=== PATIENT | female | born 1975 | race Caucasian/White ===

== ENCOUNTER → 2016-09-21 | Outpatient (CLI) | payer MEDICAID ==
[~2016-09-21] MED LIST: CYAN100017 PO; CYCL1TAB29 PO; DAKI0.12 TOPICAL; DILA4TAB2 PO; FENT100D T-DERMAL; GABA800T PO; LITH300C2 PO; LORA1TAB12 PO; MULT1TAB84 PO; OMEP40CA2 PO; VIST25CA PO
[2016-09-21 14:30] LABS: AUTOMATED NEUTROPHIL # 8.2 TH/MM3 (1.8-7.7); BASOPHIL # 0.1 TH/MM3 (0-0.2); BASOPHIL % 1.1 % (0.0-2.0); EOSINOPHIL # 0.1 TH/MM3 (0-0.4); EOSINOPHIL % 1.3 % (0.0-4.0); HEMATOCRIT 40.1 % (35.0-46.0); HEMO FLAGS DIFF FINAL; LYMPH % 22.3 % (9.0-44.0); LYMPHOCYTE # 2.5 TH/MM3 (1.0-4.8); MEAN CELL VOLUME 90.9 FL (80.0-100.0); MEAN CORPUSCULAR HEMOGLOBIN 32.2 PG (27.0-34.0); MEAN CORPUSCULAR HGB CONC 35.5 % (32.0-36.0); MONO % 3.5 % (0.0-8.0); NEUT % 71.8 % (16.0-70.0); PLATELET COUNT 234 TH/MM3 (150-450); RED BLOOD COUNT 4.42 MIL/MM3 (4.00-5.30); RED CELL DISTRIBUTION WIDTH 13.5 % (11.6-17.2); WHITE BLOOD COUNT 11.4 TH/MM3 (4.0-11.0)
[2016-09-21 14:39] LABS: APTT (PATIENT) 29.6 SEC (24.3-30.1); PROTHROMBIN TIME - PATIENT 11.2 SEC (9.8-11.6)
[2016-09-21 14:57] LABS: ALKALINE PHOSPHATASE 98 U/L (45-117); ALT (GPT) 50 U/L (10-53); ANION GAP 11 MEQ/L (5-15); AST (GOT) 40 U/L (15-37); BICARBONATE 23.5 MEQ/L (21.0-32.0); BLOOD UREA NITROGEN 6 MG/DL (7-18); CHLORIDE 102 MEQ/L (98-107); GLOMERULAR FILTRATION RATE 77 ML/MIN (>89); GLUCOSE,FASTING 72 MG/DL (74-99); POTASSIUM 3.4 MEQ/L (3.5-5.1); SODIUM (NA) 136 MEQ/L (136-145); TOTAL BILIRUBIN ADULT 0.9 MG/DL (0.2-1.0)
[2016-09-21 15:18] LABS: BHCG SCREEN QUALITATIVE LESS THAN 1 MIU/ML (0-5)
== END ==
LOC: CPRE 13:58
PROVIDERS: ATTEND Obstetrics & Gynecology Gynecologic Oncology
DX: Z01.812 Encounter for preprocedural laboratory examination (principal); C51.9 Malignant neoplasm of vulva, unspecified
CPT/HCPCS: 36415; 80053; 84703; 85025; 85610; 85730

== ENCOUNTER → 2016-09-26 | Day surgery (SDC) | payer MEDICAID ==
[~2016-09-26] VITALS: Ht 162.6 cm; Wt 78.8 kg
[~2016-09-26] MED LIST changes: +*MEPERIDINE 25 MG INJ VIAL PERIprocedural Use ONLY ONE; +*morphine SULFATE 8 MG/ML PERIprocedure ONLY ONE; +ACETAMINOPHEN 1000 MG/100 ML VIAL IV ONE; +CHLORHEXIDINE GLUCONATE 2 % 1 PACK (2 CLOTHS) TOPICAL PRN; +ESTROGENS CONJUGATED VAG CREA 15 APPL/30 GM TUBE ONE; +FAMOTIDINE 20 MG/2 ML VIAL ONE; +INSULIN HUMAN REGULAR 1,000 UNITS/10 ML VIAL SQ PRN; +KETOROLAC TROMETHAMINE 30 MG/ML (IVP) VIAL ONE; +KETOROLAC TROMETHAMINE 60 MG/2 ML (IM) VIAL IM ONE; +LACTATED RINGER'S 1000 ML IV PRN; +LIDOCAINE 1%/EPINEPHrine 1:100,000 SOLN 50 ML VIAL ONE; +METOPROLOL TARTRATE 25 MG TAB PO PRN; +MIDAZOLAM HCL 2 MG/2 ML VIAL ONE; +MORPHINE SULFATE 4 MG/ML INJ ONE; +ONDANSETRON HCL 4 MG/2 ML VIAL IV PUSH ONE; +POVIDONE IODINE 5% (ANTISEPSIS KIT) 4 APPLICATIONS EACH NARE PRN; +PROPOFOL 200 MG/20 ML AMP IV ONE; +SODIUM CHLORID 0.9% 500 ML IV PRN; +ceFAZolin 2 GM PREMIX 50 ML ONE; +fentaNYL CITRATE 250 MCG/5 ML AMP ONE
[2016-09-26 12:00] VITALS: BP 142/91; PULSE 75; RESP 18; TEMP 98.9; O2SAT 98
[2016-09-26 16:20] VITALS: BP 101/81; PULSE 80; RESP 20; TEMP 98; O2SAT 96
--- NOTE | 2016-09-28 18:15 | MP ---
cc: BRIAN MUNOZ MD, KELLY L. MD DATE OF SURGERY 09/26/16 PREOPERATIVE DIAGNOSIS 1. 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 2. Status post radiation chemotherapy. 3. Nonhealing ulcer left vulva POSTOPERATIVE DIAGNOSIS 1. 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 2. Status post radiation chemotherapy. 3. Nonhealing ulcer left vulva PROCEDURE Examination under anesthesia, sharp debridement and multiple biopsies of the left vulvar ulcer SURGEON Juanjo Prabhakar MD ROLL OPERATOR [place] photographer's assistant ANESTHESIA General endotracheal anesthesia ESTIMATED BLOOD LOSS 20 mL HISTORY A 41-year-old female who presented with an extensive squamous cell carcinoma of the vulva with disruption to the normal anatomy circumferentially and bilateral extensive groin metastases not able to be treated with surgery. She was treated with primary radiation therapy, cisplatin chemotherapy, had a good response to treatment but has had a large nonhealing ulceration in the left vulva that has persisted now for many, many months. She has been taken under anesthesia for treatment on multiple prior occasions. She has been under the care of Dr. Brian Munoz for wound management and over time this area has improved. It has decreased in size, although the depth has not changed as the soft tissue and muscle to the pelvic fascia and bony structures has been lost but the width of the opening has decreased in size. In recent time, it has been more troublesome from a hygienic standpoint. There has been a malodorous discharge and some discomfort. She was seen recently in our office where we discussed options and she felt there could be benefit from again debridement and she is seen again in preop holding area where these findings are reviewed, discussion occurs and she agrees. FINDINGS Exam under anesthesia are as previously described. Large ulceration replaced in the left vulva. There is diffuse anatomical changes consistent with prior cancer and radiation changes. There is no overt evidence of metastatic disease. No overt groin adenopathy. The large defect in the left vulva has firm induration circumferentially and a coasting over the base of the wound that is cultured and included in debridement. At the completion of the case the tissue has been debrided back to some return of blood supply in all surfaces and the necrotic nonviable appearing tissue had been completely resected. All of the tissue resected was sent to the pathologist for histopathologic analysis. PROCEDURE IN DETAIL The patient taken to operating room, placed in dorsal lithotomy position after general endotracheal anesthesia was administered. Time-out was undertaken. The patient was identified by sight recognition and hospital ID bracelet and the proposed procedure was reviewed and confirmed. Exam under anesthesia was performed with findings as described above. She was prepped in sterile fashion. Lidocaine epinephrine was injected circumferentially around the perimeter, dominguez and base of this left vulvar defect. Sharp dissection with scissors were used to remove the indurated necrotic tissue circumferentially around the edges of the ulceration and sharp debridement was used to carry along the dominguez of the ulcer down to the base where sharp debridement with scissors was used to remove all of this tissue. Next a sharp curette was used circumferentially to further curet this area. During this process, cultures were obtained for Gram stain, anaerobic, aerobic and fungal culture and sensitivity. It was felt that after removal of the abnormal-appearing tissue and getting down to tissue with adequate blood supply, all surgical objectives had been completed. The area was scrubbed and rinsed thoroughly again with Equallogiciclens scrub brush, rinsed and then Kerlix roll lubricated with Premarin cream was used to pack the base of this over which an ABD pad and then stocking undergarments were used to hold the dressing in place. Preliminary and final counts were correct. She was returned to dorsal supine position and was pending reversal of anesthesia when I left the operating room to precede her to the Post Anesthesia Care Unit. MD KATJA Lindquist/ /11:20 AM /6:02 PM
== END | disposition home or self-care (01) ==
LOC: HSDC 10:57
PROVIDERS: ATTEND Obstetrics & Gynecology Gynecologic Oncology
DX: C51.9 Malignant neoplasm of vulva, unspecified (principal); N76.6 Ulceration of vulva; B96.5 Pseudomonas (aeruginosa) (mallei) (pseudomallei) as the cause of diseases classified elsewhere; Z92.3 Personal history of irradiation
CPT/HCPCS: 00906; 56620; 86850; 86900; 86901; 87015; 87070; 87077; 87102; 87116; 87186; 87205; 87206; 88305; J0131; J0690; J1885; J2175; J2250; J2270; J2405; J3010; J7120

== ENCOUNTER 2016-11-27 14:22 | Emergency (ER) | payer MEDICAID, OTHER ==
[~2016-11-27] VITALS: Ht 170.2 cm; Wt 85.0 kg
[~2016-11-27 14:22] MED LIST changes: -*MEPERIDINE 25 MG INJ VIAL PERIprocedural Use ONLY ONE; -*morphine SULFATE 8 MG/ML PERIprocedure ONLY ONE; -ACETAMINOPHEN 1000 MG/100 ML VIAL IV ONE; -CHLORHEXIDINE GLUCONATE 2 % 1 PACK (2 CLOTHS) TOPICAL PRN; -CYCL1TAB29 PO; -ESTROGENS CONJUGATED VAG CREA 15 APPL/30 GM TUBE ONE; -FAMOTIDINE 20 MG/2 ML VIAL ONE; -INSULIN HUMAN REGULAR 1,000 UNITS/10 ML VIAL SQ PRN; -KETOROLAC TROMETHAMINE 30 MG/ML (IVP) VIAL ONE; -KETOROLAC TROMETHAMINE 60 MG/2 ML (IM) VIAL IM ONE; -LACTATED RINGER'S 1000 ML IV PRN; -LIDOCAINE 1%/EPINEPHrine 1:100,000 SOLN 50 ML VIAL ONE; -METOPROLOL TARTRATE 25 MG TAB PO PRN; -MIDAZOLAM HCL 2 MG/2 ML VIAL ONE; -MORPHINE SULFATE 4 MG/ML INJ ONE; -ONDANSETRON HCL 4 MG/2 ML VIAL IV PUSH ONE; -POVIDONE IODINE 5% (ANTISEPSIS KIT) 4 APPLICATIONS EACH NARE PRN; -PROPOFOL 200 MG/20 ML AMP IV ONE; -SODIUM CHLORID 0.9% 500 ML IV PRN; -ceFAZolin 2 GM PREMIX 50 ML ONE; -fentaNYL CITRATE 250 MCG/5 ML AMP ONE
[2016-11-27 17:49] VITALS: BP 122/81; PULSE 87; RESP 22; O2SAT 98
[2016-11-27 17:56] VITALS: TEMP 98.7
--- NOTE | 2016-11-27 18:15 | PD ---
HPI Chief Complaint: Medical Clearance Time Seen by Provider: 17:43 Travel History International Travel<30 days: No Contact w/Intl Traveler<30days: No Traveled to known affect area: No History of Present Illness HPI 41yo F with PMH of squamous cell of the vulva s/p radiation therapy and chemo completed in 03/2015, a large ulcerative wound left vulva/perineum and neuropathies presents to the ED under police custody for medical clearance to go to senior living. Pt has history of anxiety, bipolar, celiac disease, Hep C. Denies any fever, chest pain, sob, n/v, abdominal pain, focal weakness or numbness. Pt was seen by Dr. Prabhakar on 09/15/16 and then had wound debridement of the vulva and biopsies in 09/26/16. Pt states her biopsy result was positive for recurrent cancer and that she had an appointment with Dr. Prabhakar this . Our report showed that pt has invasive moderately differentiated squamous cell carcinoma. 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 ) GERD: No Genitourinary: Yes (incont) Headaches: Yes Hepatitis: Yes (hep c) Hiatal Hernia: No Immune Disorder: No Musculoskeletal: Yes (ddd) Neurologic: Yes (tingling in hand and feet) Psychiatric: Yes Reproductive: Yes Respiratory: No Immunizations Current: Yes Radiation Therapy: Yes Thyroid Disease: No Ulcer: No ?: Unknown Menopausal: Yes : 2 Para: 1 Miscarriage: 0 : 1 Ovarian Cysts: Yes Tubal Ligation: Yes (1996) Past Surgical History Abdominal Surgery: No AICD: No Arteriovenous Shunt: No Body Medical Devices: port in r side of chest Cardiac Surgery: No Ear Surgery: Yes (tubes in ears prior) Endocrine Surgery: No Eye Surgery: No Genitourinary Surgery: No Gynecologic Surgery: Yes (tubal ligation, vulva repair) Insulin Pump: No Joint Replacement: No Oral Surgery: No Pacemaker: No Thoracic Surgery: No Tonsillectomy: Yes Other Surgery: Yes (OVARIAN CYST REMOVAL) Social History Alcohol Use: Yes Tobacco Use: Yes (3-5 cigarettes daily) Substance Use: No Allergies-Medications (Allergen,Severity, Reaction): Coded Allergies: Gluten (Verified Allergy, Severe, GI DISTURB., SLEEP DISORDER, 11/27/16) Wheat (Verified Allergy, Intermediate, 11/27/16) gi discomfort, stomach issues Reported Meds & Prescriptions Reported Meds & Active Scripts Active Lorazepam 1 Mg Tab 1 Mg PO BID PRN Omeprazole 40 Mg Cap 40 Mg PO DAILY Gabapentin 800 Mg Tab 800 Mg PO TID Dakins Solution Quarter Strength Topical (Sodium Hypochlorite Topical) 0.125% Soln 473 Ml TOPICAL DAILY Reported Vistaril (Hydroxyzine Pamoate) 25 Mg Cap 50 Mg PO BID Fentanyl Patch 72 HR (Fentanyl) 100 Mcg/Hr Patch 200 Mcg T-DERMAL Q72H Remove old patch when new one placed. Dilaudid (Hydromorphone HCl) 4 Mg Tab 4 Mg PO Q4H PRN [place] Carbonate 300 Mg Cap 300 Mg PO TID Review of Systems Except as stated in HPI: all other systems reviewed are Neg Physical Exam Narrative GENERAL: 41yo F not in distress. SKIN: Focused skin assessment warm/dry. HEAD: Atraumatic. Normocephalic. CARDIOVASCULAR: Regular rate and rhythm. No murmur appreciated. RESPIRATORY: No accessory muscle use. Clear to auscultation. Breath sounds equal bilaterally. GASTROINTESTINAL: Abdomen soft, non-tender, nondistended. No rebound tenderness or guarding. : +5cm by 3cm open wound under left vulva/perineum. Clear drainage. Diffuse erythema in perineum. MUSCULOSKELETAL: No obvious deformities. No clubbing. No cyanosis. No edema. NEUROLOGICAL: Awake and alert. No obvious cranial nerve deficits. Motor grossly within normal limits. Normal speech. PSYCHIATRIC: Anxious. Data Data Last Documented VS Vital Signs Date Time Temp Pulse Resp B/P Pulse Ox O2 Delivery O2 Flow Rate FiO2 11/27/16 17:56 98.7 11/27/16 17:49 87 22 122/81 98 Room Air MDM Medical Decision Making Medical Screen Exam Complete: Yes Emergency Medical Condition: Yes Differential Diagnosis Medical encounter for a chronic medical condition that pt has follow up with. Narrative Course 41yo F with large ulcerative wound in left vulva/perineum who is currently being followed by Dr. Munoz and Dr. Prabhakar here under police custody for medical clearance. I feel that pt needs to follow up with Dr. Prabhakar that get the treatment she needs. No acute complaints currently to warrant admission. Vital signs stable. Diagnosis Primary Impression: Vulva cancer Patient Instructions: General Instructions Departure Forms: Tests/Procedures Additional Instructions: Patient needs to follow up with Dr. Prabhakar as an outpatient for cancer treatment. Patient also should follow up with her PMD Dr. Munoz. Please return to the Emergency Department immediately if symptoms worsen. Med/Other Pt SpecificInfo: No Change to Meds Disposition: [address] LAW ENFORCEMNT Condition: Stable Cindi Christy Nov 27, 2016 18:14
== END 2016-11-27 18:57 ==
LOC: NEPD 14:22
DX: C51.9 Malignant neoplasm of vulva, unspecified (principal); K90.0 Celiac disease; B19.20 Unspecified viral hepatitis C without hepatic coma; J45.909 Unspecified asthma, uncomplicated; F41.9 Anxiety disorder, unspecified; F32.9 Major depressive disorder, single episode, unspecified; K21.9 Gastro-esophageal reflux disease without esophagitis; F17.210 Nicotine dependence, cigarettes, uncomplicated; Z86.73 Personal history of transient ischemic attack (TIA), and cerebral infarction without residual deficits
CPT/HCPCS: 99281